=== PATIENT | female | born 1950 | race African-American/Black ===

== ENCOUNTER 2018-06-21 12:30 | Inpatient (IN) | payer OTHER, BC ==
[~2018-06-21] VITALS: Ht 149.9 cm; Wt 58.0 kg
[~2018-06-21 12:30] MED LIST: ASCORBIC ACID500 M3 PO; BACLOFEN20 MG PO; CELEBREX200 MG PO; FERROUS SULFAT325 MG PO; FLONASE16 G1 BOTH NARES; FLUCONAZOLE100 MG PO; FUROSEMIDE20 MG PO; GABAPENTIN300 MG PO; GABAPENTIN600 MG PO; HYDROCODON-ACE1 EAC8 PO; IBUPROFEN600 MG PO; KLOR-CON M2020 MEQ PO; LASIX80 MG PO; LITE COAT ASPI325 M1 PO; MAGNESIUM400 M1 PO; METFORMIN HCL1000 MG PO; PRILOSEC OTC20 MG PO; PROAIR HFA8.5 GM IH; ST. JOSEPH ASPI81 MG PO; SYMBICORT60 INHALAT IH; VALIUM5 MG PO; VICODIN 5-3001 EACH PO; VITAMIN B12 100MCG PO; VITAMIN D2000 UNIT PO
[2018-06-21 13:46] LABS: BASOPHIL (%) 0.2 % (0-1); EOSINOPHIL (%) 0 % (0-5); HEMATOCRIT 42.6 % (36.0-46.0); HEMOGLOBIN 14.2 G/DL (11.9-15.5); IMMATURE GRANULOCYTE (%) 0.4 % (0.0-0.7); LYMPHOCYTE (%) 7.6 % (15-42); MCH 33.2 PG (29.0-34.0); MCHC 33.3 G/DL (30.0-36.0); MCV 99.5 FL (83-99); MONOCYTE (%) 5.9 % (3-12); MONOCYTE COUNT 0.8 K/uL (0-0.8); NEUTROPHIL (%) 85.9 % (45-76); NEUTROPHIL COUNT 11.6 K/uL (1.8-6.4); PLATELET COUNT 319 K/uL (156-360); RBC DIS.WIDTH-CV 15.9 % (11.8-14.6); RBC DIS.WIDTH-SD 57.8 % (39-53); RED BLOOD COUNT 4.28 M/uL (3.80-5.20); WHITE BLOOD COUNT 13.5 K/uL (4.1-10.2)
[2018-06-21 13:59] LABS: ALBUMIN 3.3 g/dL (3.2-4.8); CHLORIDE 103 mEq/L (99-109); POTASSIUM 3.8 mEq/L (3.7-5.4); SODIUM 146 mEq/L (136-147)
[2018-06-21 14:01] LABS: GLUCOSE 114 mg/dL (70-99); TOTAL PROTEIN 7.6 g/dL (6.4-8.3)
[2018-06-21 14:03] LABS: COMMENTS - BLOOD GASES A+C+; DEVICE CONTINUOUS NEB; O2 FLOW 8 L/MIN; SITE RR
[2018-06-21 14:04] LABS: BICARBONATE 31.2 mEq/L (22-26); CARBOXY HGB 2.5 % (0-5); PCO2 68 mm Hg (35-45); PO2 271 mm Hg (80-100); pH 7.27 (7.35-7.45)
[2018-06-21 14:05] LABS: BASE EXCESS 2.3 mEq/L (-3 to +3)
[2018-06-21 14:05] LABS: ALKALINE PHOSPHATASE 88 IU/L (3-129); CREATININE 0.6 mg/dL (0.6-1.3); GFR ESTIMATE (CALCULATED) > 59 mL/min/
[2018-06-21 14:06] LABS: AST (GOT) 27 IU/L (2-34); UREA NITROGEN (BUN) 13 mg/dL (9-23)
[2018-06-21 14:08] LABS: ALT (GPT) 12 IU/L (3-49); TROP-I INTERPRETATION NEGATIVE; TROPONIN-I 0.02 ng/mL (0.0-0.30)
[2018-06-21 16:27] LABS: COMMENTS - BLOOD GASES C+; DEVICE NC; PCO2 59 mm Hg (35-45); PO2 85 mm Hg (80-100); SITE RB
[2018-06-21 16:28] LABS: BASE EXCESS -1.8 mEq/L (-3 to +3); BICARBONATE 26.5 mEq/L (22-26); CARBOXY HGB 2.4 % (0-5)
[2018-06-21 16:29] LABS: O2 FLOW 4 L/MIN; pH 7.26 (7.35-7.45)
[2018-06-21] MEDS ORDERED: FLUTICASONE PRO16 GM BOTH NARES (18:13)
[2018-06-21] MEDS ORDERED: DIAZEPAM10 MG PO (18:13)
[2018-06-21] MEDS ORDERED: HYDROCODON-ACE1 EAC9 PO (18:13)
[2018-06-21] MEDS ORDERED: OMEPRAZOLE20 MG PO (18:14)
[2018-06-21] MEDS ORDERED: ECONAZOLE NITRA15 GM TP (18:16)
[2018-06-21] MEDS ORDERED: SINGULAIR10 MG PO (18:26)
[2018-06-21] MEDS ORDERED: VITAMIN D31000 UNIT PO (18:30)
[2018-06-21 19:00] VITALS: BP 172/87
[2018-06-21 19:12] VITALS: BP 149/81
[2018-06-21 20:00] VITALS: BP 156/83
[2018-06-21 21:00] VITALS: BP 163/82
[2018-06-21 22:00] VITALS: BP 153/99
[2018-06-21 23:00] VITALS: BP 151/77
[2018-06-22] VITALS (15 sets, daily range): BP systolic 130–176; BP diastolic 63–93
[2018-06-22 05:48] LABS: HEMATOCRIT 39.2 % (36.0-46.0); HEMOGLOBIN 13.1 G/DL (11.9-15.5); MCHC 33.4 G/DL (30.0-36.0); MCV 98.7 FL (83-99); PLATELET COUNT 347 K/uL (156-360); RBC DIS.WIDTH-CV 15.9 % (11.8-14.6); RBC DIS.WIDTH-SD 57.2 % (39-53); RED BLOOD COUNT 3.97 M/uL (3.80-5.20); WHITE BLOOD COUNT 8.7 K/uL (4.1-10.2)
[2018-06-22 06:08] LABS: CHLORIDE 101 MEQ/L (99-109); CREATININE 0.5 MG/DL (0.6-1.3); GFR ESTIMATE (CALCULATED) > 59 mL/min/; GLUCOSE 156 mg/dL (70-99); SODIUM 143 MEQ/L (136-147); UREA NITROGEN (BUN) 15 mg/dL (9-23)
[2018-06-22 06:33] LABS: POTASSIUM 4.7 MEQ/L (3.7-5.4)
[2018-06-23 00:01] VITALS: BP 166/80
[2018-06-23 02:14] VITALS: BP 156/96
[2018-06-23 04:01] VITALS: BP 178/98
[2018-06-23 08:01] VITALS: BP 157/90
== END 2018-06-23 18:13 | disposition hospice, home (50) | DRG 189 ==
LOC: EME 12:30 → EDOF 17:12 → 4WEST 17:12 → ENRESERV 17:14 → 4WEST 19:08 → ENRESERV 06-22 → 4WEST 06-22 15:39 → ENRESERV 06-22 15:55 → CANRESERV 06-23 00:42 → ENRESERV 06-23 04:16 → CANRESERV 06-23 12:05 → ENRESERV 06-23 12:05 → 4WEST 06-23 18:13
PROVIDERS: Emergency Medicine; Surgery
DX: J96.22 Acute and chronic respiratory failure with hypercapnia (principal); E87.2 Acidosis; C78.1 Secondary malignant neoplasm of mediastinum; C34.12 Malignant neoplasm of upper lobe, left bronchus or lung; C77.1 Secondary and unspecified malignant neoplasm of intrathoracic lymph nodes; C77.0 Secondary and unspecified malignant neoplasm of lymph nodes of head, face and neck; I87.1 Compression of vein; Z66 Do not resuscitate; Z51.5 Encounter for palliative care; F17.210 Nicotine dependence, cigarettes, uncomplicated; F41.9 Anxiety disorder, unspecified; G40.909 Epilepsy, unspecified, not intractable, without status epilepticus; I73.9 Peripheral vascular disease, unspecified; J44.9 Chronic obstructive pulmonary disease, unspecified; K21.9 Gastro-esophageal reflux disease without esophagitis; G89.29 Other chronic pain; D64.9 Anemia, unspecified; I25.2 Old myocardial infarction; Z79.82 Long term (current) use of aspirin; Z79.51 Long term (current) use of inhaled steroids; Z98.1 Arthrodesis status; Z80.9 Family history of malignant neoplasm, unspecified; Z82.49 Family history of ischemic heart disease and other diseases of the circulatory system; Z83.3 Family history of diabetes mellitus
CPT/HCPCS: 36600; 70450; 71045; 80048; 80053; 83880; 84484; 85025; 85027; 87641; 93005; 94640; 94644; 94799; 99281; 99285; C1753; C9113; J0456; J0696; J1170; J1644; J1940; J2060; J2930; J3010; J3475; J7030